=== PATIENT | female | born 1965 ===

== ENCOUNTER 2018-07-12 10:49 | Outpatient (CLI) | payer OTHER ==
[~2018-07-12] VITALS: Ht 154.9 cm; Wt 46.3 kg
== END 2018-07-12 11:10 | disposition home or self-care (01) ==
LOC: OFIC 805 10:49
DX: K21.0 Gastro-esophageal reflux disease with esophagitis (principal); R49.0 Dysphonia; R07.0 Pain in throat; K12.0 Recurrent oral aphthae